=== PATIENT | female | born 2000 | race Caucasian/White ===

== ENCOUNTER 2023-06-10 13:09 | Outpatient (AMB) | payer MEDICAID, SELFPAY ==
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
[2023-06-10 13:15] VITALS: BP 110/68; PULSE 94; O2SAT 98; BMI 37.6
== END 2023-06-10 13:50 | disposition home or self-care (01) ==
PROVIDERS: PCP Physician Assistant; Visit Provider Nurse Practitioner Family
DX: E66.9 Obesity, unspecified (principal); G47.52 REM sleep behavior disorder; G47.10 Hypersomnia, unspecified; G47.30 Sleep apnea, unspecified
CPT/HCPCS: 99204

== ENCOUNTER → 2023-06-10 13:09 | Outpatient (BNVA) | payer MEDICAID, SELFPAY | PROVIDERS: PCP Physician Assistant; Visit Provider Nurse Practitioner Family | DX: G47.52 REM sleep behavior disorder (principal); G47.10 Hypersomnia, unspecified; G47.30 Sleep apnea, unspecified; E66.9 Obesity, unspecified; Z68.37 Body mass index [BMI] 37.0-37.9, adult | CPT/HCPCS: 99212 ==